=== PATIENT | male | born 1995 | race Caucasian/White ===

== ENCOUNTER 2020-09-29 11:30 | Emergency (ER) | payer OTHER ==
[~2020-09-29 11:30] MED LIST: CITRATE OF MAG296 ML PO; IBUPROFEN600 MG PO
[2020-09-29 13:14] LABS: RED BLOOD COUNT 4.42 M/UL (4.20-5.50); WHITE BLOOD COUNT 8.9 K/UL (4.5-11.0)
[2020-09-29 13:32] LABS: BUN/CREATININE RATIO 15 (0-10)
[2020-09-29] MEDS ORDERED: ONDANSETRON ODT4 MG SL (16:36)
[2020-09-29] MEDS ORDERED: PEPCID20 MG PO (16:36)
== END 2020-09-29 16:58 | disposition home or self-care (01) ==
LOC: ER1 11:30
PROVIDERS: Physician Assistant
DX: K76.0 Fatty (change of) liver, not elsewhere classified (principal); E87.6 Hypokalemia; R19.7 Diarrhea, unspecified; Z90.89 Acquired absence of other organs; Z88.8 Allergy status to other drugs, medicaments and biological substances; Z79.899 Other long term (current) drug therapy
CPT/HCPCS: 80053; 81001; 83690; 85025; 96374; 96375; 99284; J1885; J2405; J7030; Q9967

== ENCOUNTER → 2020-12-20 | Outpatient (CLI) | payer OTHER ==
[~2020-12-20] MED LIST changes: +ONDANSETRON ODT4 MG SL; +PEPCID20 MG PO
== END ==
LOC: HEART 5 13:24
DX: R00.1 Bradycardia, unspecified (principal); R55 Syncope and collapse

== ENCOUNTER → 2020-12-20 | Outpatient (CLI) | payer OTHER | LOC: ECHO 09:00 | DX: R55 Syncope and collapse (principal); R00.1 Bradycardia, unspecified | CPT/HCPCS: ECHO; 93306 ==